=== PATIENT | female | born 2000 | race Hispanic/Latino ===

== ENCOUNTER 2023-06-18 12:50 | Inpatient (IN) | payer MEDICAID, SELFPAY ==
[2023-06-18 13:10] VITALS: BMI 22.4
[2023-06-18] MEDS ORDERED: hydrALAZINE 20 MG/ML VIAL SLOW IVP PRN ×2 (13:56→15:19)
[2023-06-18] MEDS ORDERED: Acetaminophen 500 MG TAB PO SCH (14:00)
[2023-06-18] MEDS ORDERED: Promethazine HCl 25 MG/ML VIAL IM PRN (15:19)
[2023-06-18] MEDS ORDERED: Misoprostol 200 MCG TAB PR PRN (15:19)
[2023-06-18] MEDS ORDERED: Methylergonovine 0.2 MG/ML VIAL IM PRN (15:19)
[2023-06-18] MEDS ORDERED: Diphenoxylate HCl/Atropine Tablet PO PRN (15:19)
[2023-06-18] MEDS ORDERED: Ibuprofen 800 MG TAB PO PRN (15:19)
[2023-06-18] MEDS ORDERED: Lidocaine 1% (PF) 30 ML VIAL SC PRN (15:19)
[2023-06-18] MEDS ORDERED: Ondansetron PF 4 MG/2 ML Vial IVP PRN (15:19)
[2023-06-18] MEDS ORDERED: Tranexamic Acid 1,000 MG/10 ML VIAL IVP PRN (15:19)
[2023-06-18] MEDS ORDERED: Carboprost 250 MCG/ML AMP IM PRN (15:19)
[2023-06-18] MEDS ORDERED: fentaNYL 50 mcg/mL 1 mL Vial SLOW IVP PRN (15:19)
[2023-06-18] MEDS ORDERED: Oxytocin 30 units/NS 500 ML 500 ML IV SCH (15:30)
[2023-06-18] MEDS ORDERED: fentaNYL/Ropivacaine Epidural 100 ML ONE (15:59)
[2023-06-18] MEDS: Lactated Ringer's 1,000 ML IV SCH (16:00)
[2023-06-18 16:29] LABS: Hemoglobin 10.6 g/dL (12.0-15.5); Mean Corpuscular HGB CONC 32.1 g/dL (32.0-36.0); Mean Corpuscular Hemoglobin 26.3 pg (27.0-33.0); Mean Corpuscular Volume 81.9 fl (81.6-98.3); Mean Platelet Volume 11.3 fl (7.4-10.4); Platelet Count 280 10x3/uL (150-450); RBC Distribution Width 16.2 % (11.5-14.5); Red Blood Cell (RBC) Count 4.03 10x6/uL (3.90-5.03); White Blood Cell (WBC) Count 14.2 10x3/uL (3.5-10.5)
[2023-06-18 16:57] LABS: HBSAg Index 0.15 S/CO (0-0.99); HIV (1/2) Antibody/Antigen Non-Reactive (NonReactive); HIV 1/2 INDEX 0.11 S/CO (<1.00); Hep B Surf Ag - L&D Non-Reactive S/CO (NonReactive)
[2023-06-18 16:58] LABS: Syphilis Antibody Nonreactive (Nonreactive); Syphilis Antibody Index 0.07 S/CO (<1.00 Non-Reactive)
[2023-06-18 18:43] LABS: Amphetamine Not Detected (NotDetected); Barbiturates Screen Not Detected (NotDetected); Benzodiazepine Screen Not Detected (NotDetected); Cocaine Metabolite Screen Not Detected (NotDetected); Methadone Not Detected (NotDetected); Methamphetamine Not Detected (NotDetected); Opiate Screen Not Detected (NotDetected); Oxycodone Screen Not Detected (NotDetected); Phencyclidine (PCP) Not Detected (NotDetected); THC/Cannabinoid Screen Not Detected (NotDetected); Tricyclic Screen Not Detected (NotDetected)
[2023-06-19] MEDS: Oxytocin 30 units/NS 500 ML 500 ML IV SCH ×2 (00:49→01:52)
[2023-06-19] MEDS ORDERED: Bisacodyl 10 MG SUPP PR PRN (01:02)
[2023-06-19] MEDS ORDERED: Milk Of Magnesia 30 ML UDCUP PO PRN (01:02)
[2023-06-19] MEDS ORDERED: hydrALAZINE 20 MG/ML VIAL SLOW IVP PRN (01:02)
[2023-06-19] MEDS ORDERED: Boostrix 0.5 ML (Tdap) VIAL (>/=7 yrs of age) IM ONE (01:02)
[2023-06-19] MEDS: Ibuprofen 800 MG TAB PO SCH ×3 (04:29→21:07)
[2023-06-19] MEDS: Lactated Ringer's 1,000 ML IV SCH (06:09)
[2023-06-19] MEDS ORDERED: Bupivacaine 0.25% HCL 30 ML VIAL ONE (08:00)
[2023-06-19] MEDS: Acetaminophen 325 MG TAB PO PRN ×2 (08:44→21:09)
[2023-06-19] MEDS: Ferrous Sulfate 325 MG TAB PO SCH ×2 (08:45→17:02)
[2023-06-19] MEDS: Docusate 100 MG CAP PO SCH ×2 (08:45→21:07)
[2023-06-20 04:34] LABS: #Eosinphils 0.1 10x3/uL (0.0-0.5); #Neutrophils 8.1 10x3/uL (1.5-8.4); %Basophils 0.3 % (0.0-2.0); %Eosinophils 0.9 % (0.0-6.0); %Lymphocytes 27.2 % (18.0-47.0); %Monocytes 8.1 % (0.0-10.0); %Neutrophils 62.7 % (40.0-75.0); Hematocrit 31.2 % (34.9-44.5); Hemoglobin 9.7 g/dL (12.0-15.5); Mean Corpuscular HGB CONC 31.1 g/dL (32.0-36.0); Mean Corpuscular Hemoglobin 25.7 pg (27.0-33.0); Mean Corpuscular Volume 82.8 fl (81.6-98.3); Mean Platelet Volume 11.2 fl (7.4-10.4); Platelet Count 282 10x3/uL (150-450); RBC Distribution Width 16.3 % (11.5-14.5); Red Blood Cell (RBC) Count 3.77 10x6/uL (3.90-5.03); White Blood Cell (WBC) Count 12.8 10x3/uL (3.5-10.5)
[2023-06-20] MEDS: Ibuprofen 800 MG TAB PO SCH ×2 (05:21→13:22)
[2023-06-20 07:53] VITALS: BP 116/59; TEMP 98
[2023-06-20] MEDS ORDERED: traMADol HCl 50 MG TAB PO SCH (08:00)
[2023-06-20] MEDS: Ferrous Sulfate 325 MG TAB PO SCH (08:21)
[2023-06-20] MEDS: Docusate 100 MG CAP PO SCH (08:21)
[2023-06-20] MEDS ORDERED: Benzocaine-Menthol 82.5 ML CAN TOP PRN (12:59)
== END 2023-06-20 16:00 | disposition home or self-care (01) | DRG 807 ==
LOC: CSHLD/OP 12:50 → CSHLD 15:39 → CSHPP 06-19 03:50
PROVIDERS: ADMIT Obstetrics & Gynecology; ATTEND Obstetrics & Gynecology
PROC: 10907ZC Drainage of Amniotic Fluid, Therapeutic from Products of Conception, Via Natural or Artificial Opening (ICD-10-PCS; 2023-06-18)
PROC: 10E0XZZ Delivery of Products of Conception, External Approach (ICD-10-PCS; principal; 2023-06-19)
PROC: 3E033VJ Introduction of Other Hormone into Peripheral Vein, Percutaneous Approach (ICD-10-PCS; 2023-06-19)
DX: O80 Encounter for full-term uncomplicated delivery (principal); Z37.0 Single live birth; O99.893 Other specified diseases and conditions complicating puerperium; Z3A.39 39 weeks gestation of pregnancy; M54.50 Low back pain, unspecified
CPT/HCPCS: 36415; 51702; 80306; 85025; 86762; 86780; 86850; 86900; 86901; 87340; 87389; 99285; J2405; J2590; J7120; S0020

== ENCOUNTER 2024-08-07 18:54 | Inpatient (IN) | payer MEDICAID ==
[2024-08-07] MEDS ORDERED: hydrALAZINE 20 MG/ML VIAL SLOW IVP PRN (19:17)
[2024-08-07 19:45] VITALS: BMI 25.0
[2024-08-07] MEDS ORDERED: Misoprostol 200 MCG TAB PR PRN (21:50)
[2024-08-07] MEDS ORDERED: Diphenoxylate HCl/Atropine Tablet PO PRN (21:50)
[2024-08-07] MEDS ORDERED: Docusate 100 MG CAP PO PRN (21:50)
[2024-08-07] MEDS ORDERED: Ondansetron PF 4 MG/2 ML Vial IVP PRN (21:50)
[2024-08-07] MEDS ORDERED: fentaNYL 50 mcg/mL 1 mL Vial SLOW IVP PRN (21:50)
[2024-08-07] MEDS ORDERED: Lidocaine 1% (PF) 30 ML VIAL SC PRN (21:50)
[2024-08-07] MEDS ORDERED: Tranexamic Acid 1,000 MG/10 ML VIAL IVP PRN (21:50)
[2024-08-07] MEDS ORDERED: Carboprost 250 MCG/ML AMP IM PRN (21:50)
[2024-08-07] MEDS ORDERED: Ibuprofen 800 MG TAB PO PRN (21:50)
[2024-08-07] MEDS ORDERED: Promethazine HCl 25 MG/ML VIAL IM PRN (21:50)
[2024-08-07] MEDS ORDERED: Methylergonovine 0.2 MG/ML VIAL IM PRN (21:50)
[2024-08-07] MEDS ORDERED: Acetaminophen 500 MG TAB PO PRN (21:50)
[2024-08-07] MEDS ORDERED: Oxytocin 30 units/NS 500 ML 500 ML IV SCH (22:00)
[2024-08-07 22:26] LABS: Hematocrit 37.9 % (34.9-44.5); Hemoglobin 11.7 g/dL (12.0-15.5); Mean Corpuscular HGB CONC 30.9 g/dL (32.0-36.0); Mean Corpuscular Hemoglobin 24.7 pg (27.0-33.0); Mean Corpuscular Volume 80.1 fL (81.6-98.3); Mean Platelet Volume 10.1 fL (7.4-10.4); Platelet Count 372 10x3/uL (150-450); RBC Distribution Width 15.9 % (11.5-14.5); Red Blood Cell (RBC) Count 4.73 10x6/uL (3.90-5.03)
[2024-08-07 22:32] LABS: Amphetamine Not Detected (NotDetected); Barbiturates Screen Not Detected (NotDetected); Benzodiazepine Screen Not Detected (NotDetected); Cocaine Metabolite Screen Not Detected (NotDetected); Methadone Not Detected (NotDetected); Methamphetamine Not Detected (NotDetected); Opiate Screen Not Detected (NotDetected); Oxycodone Screen Not Detected (NotDetected); Phencyclidine (PCP) Not Detected (NotDetected); THC/Cannabinoid Screen Not Detected (NotDetected); Tricyclic Screen Not Detected (NotDetected)
[2024-08-07 23:03] LABS: HBsAg Index 0.29 S/CO (0-0.99); HIV (1/2) Antibody/Antigen Non-Reactive (NonReactive); Hep B Surf Ag - L&D Non-Reactive S/CO (NonReactive)
[2024-08-07 23:04] LABS: Syphilis Antibody Nonreactive (Nonreactive); Syphilis Antibody Index 0.06 S/CO (<1.00 Non-Reactive)
[2024-08-08] MEDS ORDERED: Moisturizing Cream (Eucerin) 113 GM JAR TOP PRN ×2 (01:43→05:25)
[2024-08-08] MEDS ORDERED: Lactated Ringer's 500 ML IV PRN (01:43)
[2024-08-08] MEDS ORDERED: diphenhydrAMINE 50 MG/ML VIAL IVP PRN ×2 (01:43→05:25)
[2024-08-08] MEDS ORDERED: Promethazine HCl 25 MG/ML VIAL IM PRN ×2 (01:43→05:25)
[2024-08-08] MEDS ORDERED: Acetaminophen 325 MG TAB PO PRN (01:43)
[2024-08-08] MEDS ORDERED: Naloxone HCl 0.4 mg/ml Vial IVP PRN ×4 (01:43→05:25)
[2024-08-08] MEDS ORDERED: Ondansetron PF 4 MG/2 ML Vial IVP PRN ×3 (01:43→05:25)
[2024-08-08] MEDS ORDERED: ePHEDrine Sulfate 50 MG/10 ML VIAL SLOW IVP PRN (01:43)
[2024-08-08] MEDS ORDERED: Active EPIDURAL FS SCH (01:45)
[2024-08-08] MEDS ORDERED: fentaNYL 2 mcg/Ropivacaine 0.2% Epidural 100 ML CADD EPIDURAL SCH (01:45)
[2024-08-08] MEDS: fentaNYL/Ropivacaine Epidural 100 ML ONE (01:56)
[2024-08-08] MEDS: Oxytocin 30 units/NS 500 ML 500 ML IV SCH (02:50)
[2024-08-08] MEDS ORDERED: Bicitra 30 ML UDCUP PO PRN (04:51)
[2024-08-08] MEDS ORDERED: Famotidine/PF 20 mg/2ml Vial SLOW IVP PRN (04:51)
[2024-08-08] MEDS: CEFAZOLIN 2 GM in Sodium Chloride 0.9% 100 ML IVPB SCH (04:51)
[2024-08-08] MEDS ORDERED: Azithromycin 500 MG in Sodium Chloride 0.9% 250 ML 250 ML IVPB SCH (05:00)
[2024-08-08] MEDS ORDERED: Naloxone HCl 0.4 mg/ml Vial IV PRN (05:25)
[2024-08-08] MEDS ORDERED: fentaNYL 50 mcg/mL 1 mL Vial SLOW IVP PRN (05:25)
[2024-08-08] MEDS ORDERED: Meperidine HCl/PF 25 MG (1 mL) VIAL SLOW IVP PRN (05:25)
[2024-08-08] MEDS ORDERED: Ketorolac Tromethamine 30 MG (1 mL) VIAL IVP SCH (05:30)
[2024-08-08] MEDS ORDERED: Communication Order-Pharmacy FS SCH (05:30)
[2024-08-08] MEDS ORDERED: diphenhydrAMINE 25 MG CAP PO PRN (05:46)
[2024-08-08] MEDS ORDERED: hydrALAZINE 20 MG/ML VIAL SLOW IVP PRN (05:46)
[2024-08-08] MEDS: Azithromycin 500 MG VIAL ONE (09:03)
[2024-08-08] MEDS: Lactated Ringer's 1,000 ML IV SCH (09:03)
[2024-08-08] MEDS: Dexamethasone 10 MG/ML VIAL ONE (09:04)
[2024-08-08] MEDS: ePHEDrine Sulfate 50 MG/10 ML VIAL ONE (09:04)
[2024-08-08] MEDS: Morphine PF 10 MG/10 ML VIAL ONE (09:04)
[2024-08-08] MEDS: Oxytocin 10 UNITS/ML VIAL ONE (09:04)
[2024-08-08] MEDS: fentaNYL 50 mcg/mL 1 mL Vial ONE (09:04)
[2024-08-08] MEDS: CEFAZOLIN 2 GM VIAL ONE (09:04)
[2024-08-08] MEDS: Glycopyrrolate 0.2 MG/ML 5 ML SYRINGE ONE (09:04)
[2024-08-08] MEDS: Ondansetron PF 4 MG/2 ML Vial ONE (09:04)
[2024-08-08] MEDS: PHENYLEPHRINE-NS 100 MCG/ML 10 ML SYRINGE ONE (09:04)
[2024-08-08] MEDS: Ketorolac Tromethamine 30 MG (1 mL) VIAL ONE (09:05)
[2024-08-08] MEDS: Ferrous Sulfate 325 MG TAB PO SCH (09:05)
[2024-08-08] MEDS: Midazolam HCl 2 mg/2 ml Vial ONE (09:05)
[2024-08-08] MEDS: Boostrix 0.5 ML (Tdap) VIAL (>/=7 yrs of age) IM ONE (09:05)
[2024-08-08] MEDS: Ketorolac Tromethamine 30 MG (1 mL) VIAL IVP PRN (22:25)
[2024-08-08] MEDS: Simethicone Chewable 80 MG TAB PO PRN (22:26)
[2024-08-09] MEDS: HYDROcodone/Acetaminophen 5/325 mg Tablet PO PRN (02:53)
[2024-08-09 04:24] LABS: Hematocrit 25.6 % (34.9-44.5); Hemoglobin 7.9 g/dL (12.0-15.5); Mean Corpuscular HGB CONC 30.9 g/dL (32.0-36.0); Mean Corpuscular Hemoglobin 24.8 pg (27.0-33.0); Mean Corpuscular Volume 80.3 fL (81.6-98.3); Mean Platelet Volume 10.5 fL (7.4-10.4); Platelet Count 300 10x3/uL (150-450); RBC Distribution Width 15.7 % (11.5-14.5); Red Blood Cell (RBC) Count 3.19 10x6/uL (3.90-5.03)
[2024-08-09] MEDS ORDERED: Ibuprofen 800 MG TAB PO PRN (05:30)
[2024-08-09] MEDS ORDERED: Ibuprofen 800 MG TAB PO SCH (06:00)
[2024-08-09] MEDS: Ibuprofen 800 MG TAB PO SCH (11:46)
[2024-08-09] MEDS ORDERED: Bupivacaine PF 0.5% 30 ML VIAL ONE (17:00)
[2024-08-09] MEDS ORDERED: Lidocaine 2% MPF 10 ML AMP (For Epidural Use) ONE (17:00)
[2024-08-10 09:31] VITALS: BP 123/68; TEMP 97.7
== END 2024-08-10 16:30 | disposition home or self-care (01) | DRG 788 ==
LOC: CSHLD/OP 18:54 → CSHLD 21:37 → CSHPP 08-08 08:23
PROVIDERS: ADMIT Obstetrics & Gynecology; ATTEND Obstetrics & Gynecology
PROC: 10907ZC Drainage of Amniotic Fluid, Therapeutic from Products of Conception, Via Natural or Artificial Opening (ICD-10-PCS; principal; 2024-08-08)
PROC: 10D00Z1 Extraction of Products of Conception, Low, Open Approach (ICD-10-PCS; 2024-08-08)
PROC: 3E0S3BZ Introduction of Anesthetic Agent into Epidural Space, Percutaneous Approach (ICD-10-PCS; 2024-08-08)
DX: O99.824 Streptococcus B carrier state complicating childbirth (principal); Z3A.39 39 weeks gestation of pregnancy; Z37.0 Single live birth; O77.0 Labor and delivery complicated by meconium in amniotic fluid; O76 Abnormality in fetal heart rate and rhythm complicating labor and delivery; O69.81X0 Labor and delivery complicated by cord around neck, without compression, not applicable or unspecified; O90.81 Anemia of the puerperium; D50.0 Iron deficiency anemia secondary to blood loss (chronic)
CPT/HCPCS: 36415; 51702; 80306; 85027; 86762; 86780; 86850; 86900; 86901; 87340; 87389; 99285; J0665; J1100; J1885; J2250; J2274; J2405; J2590; J3010

== ENCOUNTER 2024-08-16 22:26 | Emergency (ER) | payer MEDICAID, SELFPAY ==
[2024-08-16] MEDS ORDERED: Mineral Oil ENEMA ONE (22:31)
== END 2024-08-16 23:40 | disposition home or self-care (01) ==
LOC: CSHERS 22:26
DX: K59.00 Constipation, unspecified (principal)
CPT/HCPCS: 99283

== ENCOUNTER 2025-03-15 04:58 | Emergency (ER) | payer MEDICAID, OTHER ==
[2025-03-15 05:26] LABS: Glucose, Urine (Dipstick) Normal (Negative); Leukocyte 100 (Negative); Protein, Urine (Dipstick) 15 mg/dl (Neg-Trace); Specific Gravity, Urine 1.020 (1.005-1.030)
[2025-03-15 05:39] LABS: Pregnancy Test - Urine (BHCG) POSITIVE (Negative); Pregu Control Background? CLEAR/WHITE (CLR/WHITE); Pregu Control Bar Appear? YES (CONTROL BAR)
[2025-03-15 05:44] LABS: Bacteria/HPF None Seen HPF (None Seen); CAUTI Indications for Culture Pelvic or flank pain; RBC/HPF 0-3 HPF (0-3)
[2025-03-15 05:46] LABS: Urine Culture Reflex No No
[2025-03-15] MEDS ORDERED: Azithromycin 250 MG TAB ONE (05:48)
[2025-03-15] MEDS ORDERED: cefTRIAXone (ROCEPHIN) 500 MG VIAL ONE (05:49)
[2025-03-15 21:20] LABS: Chlamydia by PCR, Vaginal Swab Not Detected (NotDetected); GC by PCR, Vaginal Swab Not Detected (NotDetected)
== END 2025-03-15 07:59 | disposition home or self-care (01) ==
LOC: CSHERS 04:58
DX: O98.811 Other maternal infectious and parasitic diseases complicating pregnancy, first trimester (principal); O26.851 Spotting complicating pregnancy, first trimester; B37.31 Acute candidiasis of vulva and vagina; Z3A.01 Less than 8 weeks gestation of pregnancy
CPT/HCPCS: 36415; 76856; 81001; 81025; 84702; 86900; 86901; 87480; 87491; 87510; 87591; 87660; 96372; J0696

== ENCOUNTER 2025-03-16 04:20 | Emergency (ER) | payer MEDICAID | END 2025-03-16 05:14 | disposition home or self-care (01) | LOC: CSHERS 04:20 | DX: O98.811 Other maternal infectious and parasitic diseases complicating pregnancy, first trimester (principal); B37.31 Acute candidiasis of vulva and vagina; Z3A.01 Less than 8 weeks gestation of pregnancy | CPT/HCPCS: 99283 ==